=== PATIENT | female | born 1960 | race American Indian/Alaskan Native ===

== ENCOUNTER 2019-05-08 06:07 | Day surgery (SDC) | payer MEDICARE ==
[2019-05-08] MEDS ORDERED: VERSED ONE (07:36)
[2019-05-08] MEDS ORDERED: XYLOCAINE 2% INFILTRATI ONE (07:36)
[2019-05-08] MEDS ORDERED: DIPRIVAN 10 MG/ML IV ONE ×2 (07:36)
[2019-05-08] MEDS ORDERED: NACL 0.9% 1000 ML 1,000 ML IV SCH (08:00)
--- NOTE | 2019-05-08 08:22 | Short Stay Summary ---
Short Stay Documentation - Allergies and Medications Current Medications: Allergies Sulfa (Sulfonamide Antibiotics) Allergy (Verified 05/08/19 07:11) Shortness of Breath Home Medications Medication Instructions Recorded Confirmed Last Taken Type Bystolic 10 mg PO DAILY 03/25/15 05/08/19 05/08/19 History Crestor 20 mg PO DAILY 03/25/15 05/08/19 05/07/19 History Levothyroxine Sodium 50 mcg PO DAILY 03/25/15 05/08/19 05/07/19 History NexIUM 40 mg PO DAILY 03/25/15 05/08/19 05/07/19 History metFORMIN 1,000 mg PO BID 03/25/15 05/08/19 05/07/19 History Breo Ellipta 100-25 Mcg INH 1 puff INHALATION PRN 05/08/19 05/08/19 Unknown History HYDROcodone/APAP 10-325 1 tab PO PRN PRN 05/08/19 05/08/19 Unknown History Invokana 300 mg PO DAILY 05/08/19 05/08/19 05/07/19 History Olmesartan (Nf) 40 mg PO DAILY 05/08/19 05/08/19 05/07/19 History Tresiba 50 units SUB-Q DAILY 05/08/19 05/08/19 05/06/19 History Tresiba 50 units SUB-Q HS 05/08/19 05/08/19 05/06/19 History Trulicity 1.5 mg SUB-Q QWEEK 05/08/19 05/08/19 Unknown History Active Medications Sodium Chloride (Nacl 0.9% 1000 Ml) 1,000 mls @ 50 mls/hr IV DIRECT MARGARET Last Admin: 05/08/19 07:35 Dose: 50 mls/hr Documented by: - Brief post op/procedure progress note Date of procedure: 05/08/19 Pre-op diagnosis: 1. History of colon polyps 2. Colon cancer screening Post-op diagnosis: same (1. Colon polyps. 2. Prominent IL valve 3. hemorrhoids) Procedure: Colonoscopy with cold biopsy colonoscopy Anesthesia: MAC Findings: as above Surgeon: JUAN CARLOS DUARTE Estimated blood loss: none Pathology: list (1. IL valve 2. Transverse colon polyp 3. Sigmoid colon polyp) Specimen disposition: to lab Condition: stable - Disposition Condition at discharge: Stable Disposition: [id number]-[facility] HOME [facility] Short Stay Discharge Plan Activity: no restrictions Weight Bearing Status: Full Weight Bearing Diet: regular, low salt Follow up with: JEREMY ALMONTE MD [Primary Care Provider] - 7 Days
[2019-05-08 09:09] VITALS: BP 103/83
--- NOTE | 2019-05-08 12:37 | Anesthesia Day of Surgery ---
Anesthesia Day of Surgery - Day of Surgery Patient Examined: Yes Patient H&P Reviewed: Yes Patient is NPO: Yes Beta Blockers: No
--- NOTE | 2019-05-08 12:39 | Anesthesia Consultation ---
Anesthesia Consult and Med Hx Date of service: 05/08/19 - Airway Anesthetic Teeth Evaluation: Good ROM Head & Neck: Adequate Mental/Hyoid Distance: Adequate Mallampati Class: Class III Intubation Access Assessment: Possibly Difficult - Pulmonary Exam CTA: Yes - Cardiac Exam Cardiac Exam: No Murmur - Pre-Operative Health Status ASA Pre-Surgery Classification: ASA3 Proposed Anesthetic Plan: MAC - Pulmonary Hx Smoking: Yes Hx Asthma: Yes Hx Sleep Apnea: No - Cardiovascular System Hx Hypertension: Yes Hx Percutaneous Transluminal Coronary Angioplasty (PTCA): No Hx Cardia Arrhythmia: No - Central Nervous System Hx Seizures: Yes (X 1-2013(NO MEDS)) CVA: No - Endocrine Hx Renal Disease: No Hx Liver Disease: No Hx Insulin Dependent Diabetes: Yes (BS 150) Hx Hypothyroidism: Yes - Other Systems Hx Obesity: Yes
== END 2019-05-08 09:21 | disposition home health service (06) ==
LOC: GIO 06:07
PROVIDERS: ATTEND Internal Medicine Gastroenterology
DX: Z12.11 Encounter for screening for malignant neoplasm of colon (principal); D12.3 Benign neoplasm of transverse colon; K64.8 Other hemorrhoids; K63.5 Polyp of colon; I10 Essential (primary) hypertension; E11.9 Type 2 diabetes mellitus without complications; K21.9 Gastro-esophageal reflux disease without esophagitis; J45.909 Unspecified asthma, uncomplicated; E78.00 Pure hypercholesterolemia, unspecified; E03.9 Hypothyroidism, unspecified; E66.9 Obesity, unspecified; Z88.2 Allergy status to sulfonamides; Z88.0 Allergy status to penicillin; Z79.899 Other long term (current) drug therapy; Z87.891 Personal history of nicotine dependence; Z68.37 Body mass index [BMI] 37.0-37.9, adult; Z90.710 Acquired absence of both cervix and uterus; Z98.890 Other specified postprocedural states
CPT/HCPCS: 45380; 82962; 88305; J2250; J2704; J7030